=== PATIENT | male | born 1985 ===

== ENCOUNTER 2017-05-15 17:34 | Emergency (ER) | payer SELFPAY ==
[2017-05-15 17:57] VITALS: BP 129/84
--- NOTE | 2017-05-15 18:57 | UC ---
Lower Extremity/Ankle HPI - HPI Summary HPI Summary: Fall onto knee at work about a week ago. it started swelling immediately. it hurts most to move it afte he has been seated for a while. there is anterior swelling. it actually does not hurt too much to walk on it. - History of Current Complaint Chief Complaint: UCLowerExtremity Stated Complaint: LEFT KNEE INJURY Time Seen by Provider: 05/15/17 18:42 Hx Obtained From: Patient Onset/Duration: Sudden Onset, Lasting Days Severity Initially: Moderate Severity Currently: Moderate Aggravating Factor(s): Other Alleviating Factor(s): Rest, Elevation Able to Bear Weight: Yes Related History: Occupational Injury - Allergies/Home Medications Allergies/Adverse Reactions: Allergies Allergy/AdvReac Type Severity Reaction Status Date / Time No Known Allergies Allergy Verified 05/15/17 17:57 Home Medications: Home Medications traMADol TAB* [Ultram*] 100 mg PO Q6HR PRN 05/15/17 [History Confirmed 05/15/17] PMH/Surg Hx/FS Hx/Imm Hx Previously Healthy: Yes - Surgical History Surgical History: None - Family History Known Family History: Positive: Other - no related history. - Social History Occupation: Employed Full-time Lives: With Family Alcohol Use: Rare Substance Use Type: None Smoking Status (MU): Light Every Day Tobacco Smoker Type: Cigarettes Amount Used/How Often: 5 cigs per day - Immunization History Most Recent Tetanus Shot: 01/29/14 Review of Systems Musculoskeletal: Arthralgia, Edema All Other Systems Reviewed And Are Negative: Yes Physical Exam Triage Information Reviewed: Yes Appearance: Well-Appearing, No Pain Distress, Well-Nourished Vital Signs: Initial Vital Signs Temp 98 F 05/15/17 17:53 Pulse 74 05/15/17 17:53 Resp 16 05/15/17 17:53 BP 129/84 05/15/17 17:53 Pulse Ox 100 05/15/17 17:53 Vital Signs Reviewed: Yes Eye Exam: Normal Neck exam: Normal Respiratory Exam: Normal Cardiovascular Exam: Normal Abdominal Exam: Normal Musculoskeletal Exam: Other - pre patella swelling and bogginess. there is no redness. no instability with valgus or varus stress. neg anterior drawer. Neurological Exam: Normal Psychological Exam: Normal Skin Exam: Other - small abrasion anterior knee without induration or redness. Lower Extremity Course/Dx - Course Course Of Treatment: likely pre patellar bursitis. x ray for fx. we described Nsaids and f/u ortho prn. - Differential Dx/Diagnosis Differential Diagnosis/HQI/PQRI: Arthritis, Bursitis, Cellulitis, Compartment Syndrome, Contusion, Fracture (Closed), Fracture (Open), Gout, Osteomyelitis, Puncture Wound, Septic Arthritis, Subungual Hematoma, Sprain, Strain, Tendonitis , Other Provider Diagnoses: pre patellar bursitis. knee contusion. Discharge - Discharge Plan Condition: Good Disposition: HOME Prescriptions: Naproxen TAB* [Naprosyn 250 mg TAB*] 500 mg PO Q8H PRN #20 tab PRN Reason: Pain Patient Education Materials: Knee Bursitis (ED) Referrals: No Primary Care Phys,NOPCP [Primary Care Provider] - Oliverio Pascal MD [Medical Doctor] -
--- NOTE | 2017-05-15 19:34 | RAD ---
INDICATION: Knee pain COMPARISON: None TECHNIQUE: AP and lateral views were obtained. FINDINGS: There is no acute fracture or dislocation. There is prepatellar soft tissue swelling. IMPRESSION: NEGATIVE EXAMINATION.
== END 2017-05-15 19:36 | disposition home or self-care (01) ==
LOC: UCCORT 17:34
DX: Y99.0 Civilian activity done for income or pay (principal); Y92.9 Unspecified place or not applicable; W19.XXXA Unspecified fall, initial encounter; S80.02XA Contusion of left knee, initial encounter; M70.42 Prepatellar bursitis, left knee; F17.210 Nicotine dependence, cigarettes, uncomplicated
CPT/HCPCS: 99202; G0463